=== PATIENT | female | born 1980 | race Caucasian/White ===

== ENCOUNTER 2024-01-02 09:39 | Emergency (ER) | payer OTHER ==
[2024-01-02] MEDS ORDERED: LIDO 2%/EPI 1:200000 PRESRVFRE (20 ML SDVIAL) ONE (10:37)
[2024-01-02] MEDS: LIDOCAINE 1%/EPI 1:100000 (20 ML MULTI DOSE VIAL) INF ONE (10:48)
[2024-01-02] MEDS ORDERED: IBUPROFEN 600 MG TABLET (FP) PO ONE (11:06)
[2024-01-02] MEDS: IBUPROFEN 600 MG TABLET (FP) PO ONE (11:08)
[2024-01-02 11:30] VITALS: BP 100/64; PULSE 75; RESP 20; TEMP 97.9; BMI 24.0
== END 2024-01-02 11:14 | disposition home or self-care (01) ==
LOC: FER 09:39
PROC: 0X940ZZ Drainage of Right Axilla, Open Approach (ICD-10-PCS; principal; 2024-01-02)
DX: L02.411 Cutaneous abscess of right axilla (principal)
CPT/HCPCS: 99283-25